=== PATIENT | female | born 2000 | race Caucasian/White ===

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

== ENCOUNTER 2020-02-04 19:37 | Emergency (ER) | payer BC, OTHER, SELFPAY ==
[2020-02-04 22:34] LABS: Bacteria/HPF None Seen HPF (None Seen); Bilirubin Negative (Negative); Blood, Urine Negative (Negative); Clarity Clear (Clear); Glucose, Urine (Dipstick) Normal (Negative); Leukocyte 75 Leu/uL (Negative); Nitrite Negative (Negative); Protein, Urine (Dipstick) 50 mg/dL (Neg-Trace); Urobilinogen 3 mg/dL (Less than 2)
[2020-02-04 22:36] LABS: Pregnancy Test - Urine (BHCG) Negative (Negative); Pregu Control Background? CLEAR/WHITE (CLR/WHITE); Pregu Control Bar Appear? YES (CONTROL BAR); Specific Gravity 1.028 (1.002-1.036)
[2020-02-05 11:11] LABS: SARS-CoV-2 MS2 Positive; SARS-CoV-2 N Gene Negative; SARS-CoV-2 S Gene Negative; SARS-CoV-2 orf1ab Negative
== END 2020-02-04 22:57 | disposition home or self-care (01) ==
LOC: ERS 19:37
DX: R05 Cough (principal); Z20.828 Contact with and (suspected) exposure to other viral communicable diseases; F17.210 Nicotine dependence, cigarettes, uncomplicated
CPT/HCPCS: 81003; 81015; 81025; 87635; 99284; U0003

== ENCOUNTER 2020-06-23 15:55 | Outpatient (CLI) | payer BC ==
--- NOTE | 2020-06-23 16:20 | RAD ---
PA AND LATERAL VIEWS CHEST: Date: 06/23/2020 HISTORY: Abnormal breath sounds. Wheezing. FINDINGS: The cardiomediastinum is normal. The lungs are well expanded and clear. The bony thorax is normal. Bi lateral nipple piercings are present. IMPRESSION: Normal exam. POS: AH
== END 2020-06-23 15:56 | disposition home or self-care (01) ==
LOC: RAD-FRANK 15:55
PROVIDERS: ATTEND Nurse Practitioner Family
DX: R06.2 Wheezing (principal)
CPT/HCPCS: 71046